=== PATIENT | female | born 1985 | race African-American/Black ===

== ENCOUNTER 2017-03-28 11:30 | Emergency (ER) | payer OTHER ==
[2017-03-28 11:55] VITALS: BMI 28.1
[2017-03-28 12:08] VITALS: BP 133/76; PULSE 67; RESP 18; TEMP 98; O2SAT 100
[2017-03-28] MEDS ORDERED: Sodium Chloride 0.9% 1,000 ML IV STA (12:34)
[2017-03-28 12:52] LABS: BASO # 0.1 K/uL (0.0-0.2); BASO % 0.9 % (0.0-2.0); EOS # 0.2 K/uL (0.0-0.7); EOS % 2.7 % (0.0-4.0); HEMOGLOBIN 13.2 g/dL (12.0-16.0); LYMPH # 2.2 K/uL (1.0-4.3); MEAN CELL VOLUME 90.7 fl (81.0-99.0); MEAN CORPUSCULAR HEMOGLOBIN 30.2 pg (27.0-31.0); MEAN CORPUSCULAR HGB CONC 33.3 g/dL (33.0-37.0); MEAN PLATELET VOLUME 9.4 fl (7.2-11.7); MONO # 0.5 K/uL (0.0-0.8); MONO % 8.7 % (0.0-10.0); NEUT # 2.8 K/uL (1.8-7.0); NEUT % 48.7 % (50.0-75.0); NRBC % 0.1 % (0.0-0.0); RBC 4.38 Mil/uL (3.80-5.20); RED CELL DISTRIBUTION WIDTH 13.8 % (11.5-14.5); WHITE BLOOD COUNT 5.7 K/uL (4.8-10.8)
[2017-03-28 13:03] LABS: BLOOD UREA NITROGEN 9 mg/dl (7-17); GFR AFRICAN-AMERICAN > 60; GFR NON-AFRICAN AMERICAN > 60
--- NOTE | 2017-03-28 13:26 | ED PDOC ---
HPI: General Adult Time Seen by Provider: 03/28/17 12:07 Chief Complaint (Nursing): Dizziness/Lightheaded Chief Complaint (Provider): Dizziness History Per: Patient History/Exam Limitations: no limitations Onset/Duration Of Symptoms: Days (x 1.5 weeks) Current Symptoms Are (Timing): Still Present Additional Complaint(s): Jessie is a 31 y/o female with a past medical history of asthma and nasal allergies, who presents to the ED complaining of dizziness associated with nausea, ongoing for 1.5 weeks. When she moves her head or body in certain positions she feels unstable, which lasts for 1-2 seconds and resolves when she stops moving. Patient also reports having loose stools intermittently. Denies any associated abdominal pain, headache, chest pain, back pain, or diarrhea. LMP was this week. PMD: Unknown Past Medical History Reviewed: Historical Data, Nursing Documentation, Vital Signs Vital Signs: Last Vital Signs Temp 98 F 03/28/17 12:03 Pulse 67 03/28/17 12:03 Resp 18 03/28/17 12:03 BP 133/76 03/28/17 12:03 Pulse Ox 100 03/28/17 16:01 - Medical History PMH: Asthma - Surgical History Surgical History: No Surg Hx - Family History Family History: States: Unknown Family Hx - Social History Current smoker - smoking cessation education provided: Yes Alcohol: Social Drugs: Denies - Allergies Allergies/Adverse Reactions: Allergies Allergy/AdvReac Type Severity Reaction Status Date / Time No Known Allergies Allergy Verified 03/28/17 12:00 Review of Systems ROS Statement: Except As Marked, All Systems Reviewed And Found Negative Cardiovascular: Negative for: Chest Pain Gastrointestinal: Positive for: Nausea. Negative for: Abdominal Pain, Diarrhea (loose stools intermittently) Musculoskeletal: Negative for: Back Pain Neurological: Positive for: Dizziness. Negative for: Headache Physical Exam - Reviewed Nursing Documentation Reviewed: Yes Vital Signs Reviewed: Yes - Physical Exam Appears: Positive for: Well, Non-toxic, No Acute Distress Head Exam: Positive for: ATRAUMATIC, NORMAL INSPECTION, NORMOCEPHALIC Skin: Positive for: Normal Color, Warm, Dry Eye Exam: Positive for: EOMI, Normal appearance, PERRL ENT: Positive for: Normal ENT Inspection, Other (Oral mucosa appears normal) Neck: Positive for: Normal, Painless ROM, Supple Cardiovascular/Chest: Positive for: Regular Rate, Rhythm. Negative for: Murmur Respiratory: Positive for: Normal Breath Sounds (lungs clear). Negative for: Accessory Muscle Use, Respiratory Distress Gastrointestinal/Abdominal: Positive for: Normal Exam, Bowel Sounds, Soft. Negative for: Tenderness Back: Positive for: Normal Inspection. Negative for: Vertebral Tenderness Extremity: Positive for: Normal ROM. Negative for: Pedal Edema, Deformity Neurologic/Psych: Positive for: Alert, Oriented. Negative for: Motor/Sensory Deficits - Laboratory Results Result Diagrams: 03/28/17 12:39 03/28/17 12:39 - ECG O2 Sat by Pulse Oximetry: 100 (RA) Pulse Ox Interpretation: Normal Medical Decision Making Medical Decision Making: Time: 12:26 Initial Impression: Dehydration and Dizziness Initial Plan: --BMP --CBC --Urine test --EKG --NS IV 1000 mls at 1000 mls/hr --Pending reevaluation Scribe Attestation: Documented by Sara Solitario, acting as a scribe for Radha Odonnell MD Provider Scribe Attestation: All medical record entries made by the Scribe were at my direction and personally dictated by me. I have reviewed the chart and agree that the record accurately reflects my personal performance of the history, physical exam, medical decision making, and the department course for this patient. I have also personally directed, reviewed, and agree with the discharge instructions and disposition. Disposition - Clinical Impression Clinical Impression: Dizziness - Disposition Referrals: [facility] within [facility] [Outside] - 03/30/17 Disposition: Transfer of Care Disposition Time: 17:00 Condition: STABLE Additional Instructions: Return if not better in 3 days. Instructions: Dizziness (ED) Forms: [employer] ([place]) Patient Signed Over To: Herber Arreola Present On Arrival: None
--- NOTE | 2017-03-28 15:58 | ED PDOC ---
- Laboratory Results Result Diagrams: 03/28/17 12:39 03/28/17 12:39 Interpretation Of Abn Labs: no acute - ECG ECG: Positive for: Interpreted By Me, Viewed By Me ECG Rhythm: Positive for: Normal QRS, Normal ST Segment, Sinus Rhythm O2 Sat by Pulse Oximetry: 100 (RA) Pulse Ox Interpretation: Normal - Progress ED Course And Treament: 1500: Took over care from Dr. Odonnell. Fu on labs and dispo. 1558: Stable. AAOx3. Pain free. No dizziness or nausea. Tolerated PO. Ambulating with no issues. Fu with pcp. Disposition Counseled Patient/Family Regarding: Studies Performed, Diagnosis, Need For Followup - Clinical Impression Clinical Impression: Dizziness - POA Present On Arrival: None - Disposition Referrals: [facility] [Outside] - 03/30/17 Disposition: Routine/Home Disposition Time: 15:59 Condition: STABLE Additional Instructions: Return if not better in 3 days. Instructions: Dizziness (ED) Forms: [employer] ([place])
--- NOTE | 2017-03-29 09:42 | CARD ---
APPROVED REPORT EKG Measurement Heart [id number] <Conclusion> Normal sinus rhythm Normal ECG
== END 2017-03-28 16:08 | disposition home or self-care (01) ==
LOC: H.ER 11:30
DX: R42 Dizziness and giddiness (principal)